=== PATIENT | female | born 1975 | race Two or more races ===

== ENCOUNTER 2016-12-29 14:55 | Emergency (ER) | payer MEDICAID ==
--- NOTE | 2017-01-02 11:13 | ER ---
DATE SEEN: 12/29/2016 TIME SEEN: The patient was seen at 1530 hours. HISTORY OF PRESENT ILLNESS: The patient states she has severe left leg pain, left foot pain. She works and stands on her feet all day. She works at [employer]. No history of trauma, fever, chills. She has had chronic varicose veins of lower extremities. She has increased pain in last 3 days, but she has had this going on for 2 years. She denies trauma. Denies falls. She notes she has varicose veins and congestion in her leg. MEDICATIONS: None. ALLERGIES: None. REVIEW OF SYSTEMS: HEENT: Negative. NECK: No thyroid disease. CARDIORESPIRATORY: Negative. Denies chest pain, shortness of breath, irregular heartbeat. GASTROINTESTINAL: Denies nausea, vomiting, diarrhea, constipation. : Denies frequency, urgency, dysuria, or urinary tract infection. MUSCULOSKELETAL: As noted above, she has left leg discomfort. NEURO: Negative. Denies dysesthesia in lower extremities. PHYSICAL EXAMINATION: VITAL SIGNS: Blood pressure 128/94-narrow pulse pressure secondary to pain. Increased diastolic. Pulse 82, respirations 18, oxygen saturation 100%, temperature is 36.3 degrees centigrade. GENERAL: Alert woman who when I just begin to touch her leg, she goes into tears and writhes in pain. More allodynia response than anticipated. HEENT: Without abnormality. LUNGS: Clear to auscultation. HEART: Without murmur. ABDOMEN: Soft, no organomegaly. No abdominal discomfort or guarding. BACK: No CVA percussion tenderness or pain. EXTREMITIES: Right lower extremity without pain. Left lower extremity has some fullness and visible varicosities, but they are not extensive. No compromised varicose veins. No dilation of veins. No valvular incompetence. No pedal edema. The plantar surface of the foot has mild tenderness, has mild clavus in the mid arch, but not significant. Toes without abnormality. Cap refill is good. Dorsalis pedis intact. No pedal edema of lower extremities. D-dimer is normal. LABORATORY FINDINGS: White count normal at 9800, PMNs 51, lymphocytes 40, monos 7, hemoglobin 13.1, platelets 280,000. D-dimer is less than 100, which is considered normal. Potassium is low at 3.4, otherwise normal electrolytes and BUN and creatinine ratio slightly elevated at 24, suggests under hydration. Liver enzymes negative. ASSESSMENT: 1. Left lower extremity pain, etiology indeterminate. We do not have access to venous Doppler. Plan venous Doppler to evaluate for any congenital abnormality of vascular structures of left lower extremity. 2. Tylenol for pain and for breakthrough pain use Vicodin, 12 tablets given. Follow up with healthcare provider next week. At that point, may consider further evaluation, possibly ultrasound or perform CT/MRI lower lumbar region to see if the patient's left lower pain is a function of any back pain or compromise of structures. 3. Left lower leg pain, etiology indeterminate. Probably not vascular structure mediated even though she has venous varicose veins. 4. She has dysesthesia and allodynia response to pain. 5. Pain in the foot, etiology indeterminate, rule out plantar fasciitis. Because she has so much pain, it was felt everything I palpate seemed to be painful in the left lower extremity. It is difficult to separate the plantar fasciitis out of just generalized pain. PLAN: 1. Off work until cleared by her doctor. 2. Twelve tablets of Vicodin for breakthrough pain, otherwise use Tylenol or ibuprofen. 3. Progressively increase activity as tolerated. Diminish her workload with standing for now. 4. If need be, we will need physical therapy to assess with standing exercises of leg if she has plantar fasciitis. /[id number] [place]
== END 2016-12-29 17:40 | disposition home or self-care (01) ==
LOC: FB.ED 14:55
DX: M79.662 Pain in left lower leg (principal); R20.8 Other disturbances of skin sensation
CPT/HCPCS: 36415; 80053; 85025; 85379; 86140; 99283

== ENCOUNTER → 2019-02-17 | Outpatient (CLI) | payer MEDICAID | LOC: FB.CLBR 14:57 | PROVIDERS: ATTEND Nurse Practitioner Family | DX: I83.93 Asymptomatic varicose veins of bilateral lower extremities (principal); M79.662 Pain in left lower leg | CPT/HCPCS: 36415; 85379; 93971-LT ==

== ENCOUNTER 2024-06-26 19:04 | Emergency (ER) | payer MEDICAID ==
[2024-06-26] MEDS: Ketorolac 30 MG/ML SDV IM ONE (19:35)
== END 2024-06-26 20:20 | disposition home or self-care (01) ==
LOC: FB.ED 19:04
DX: S43.402A Unspecified sprain of left shoulder joint, initial encounter (principal); X50.1XXA Overexertion from prolonged static or awkward postures, initial encounter
CPT/HCPCS: 73030-LT; 96372; 99283; J1885